=== PATIENT | male | born 1940 | race Caucasian/White ===

== ENCOUNTER 2018-04-29 09:29 | Inpatient (IN) | payer MEDICARE, OTHER ==
[~2018-04-29] VITALS: Ht 185.4 cm; Wt 101.1 kg
[2018-04-29] VITALS (10 sets, daily range): BP systolic 111–170; BP diastolic 73–99
[~2018-04-29 09:29] MED LIST: ALLO100T PO; ASPI-611 PO; CHOL2000 PO; MELA1TAB11 PO; METO50TA7 PO; MULT-1074 PO; OMEG10006 PO; VITA100D6 PO; etomidate 2mg/ml inj. ONE; rocuronium 10mg/ml inj IV ONE
[2018-04-29] MEDS ORDERED: LORazepam 2 mg/ml vial IV ONE (09:33)
[2018-04-29] MEDS ORDERED: LORazepam 2 mg/ml vial ONE ×2 (09:33→09:42)
[2018-04-29] MEDS: midazolam 100mg in NS 100ml 100 ML IV PRN ×2 (10:07→18:13)
[2018-04-29 10:09] LABS: BASOPHILS % (AUTO) 0.3 % (0-1); EOSINOPHILS # (AUTO) 0.3 X10'3 (0-0.9); EOSINOPHILS % (AUTO) 2.4 % (0-6); HEMATOCRIT 53.3 % (42.0-52.0); LYMPHOCYTES # (AUTO) 2.8 X10'3 (1.1-4.8); LYMPHOCYTES % (AUTO) 21.6 % (21-51); MEAN CORPUSCULAR HEMOGLOBIN 33.5 PG (27.0-31.0); MEAN CORPUSCULAR HGB CONC 33.9 % (33.0-36.5); MEAN CORPUSCULAR VOLUME 98.7 FL (78-98); MEAN PLATELET VOLUME 8.5 FL (7.4-10.4); MONOCYTES # (AUTO) 0.8 X10'3 (0-0.9); MONOCYTES % (AUTO) 6.2 % (2-12); NEUTROPHILS # (AUTO) 9.1 X10'3 (1.8-7.7); NEUTROPHILS % (AUTO) 69.5 % (42-75); PLATELET COUNT 168 X10'3 (140-440); RED CELL DISTRIBUTION WIDTH 13.4 % (11.5-14.5); WHITE BLOOD COUNT 13.1 X10'3 (4.5-11.0)
[2018-04-29 10:14] LABS: HEMOGLOBIN 18.1 g/dl (14.0-17.9)
[2018-04-29] MEDS ORDERED: niCARDipine/sod cl 20mg/200ml 200 ML IV ONE (10:15)
[2018-04-29 10:17] LABS: PARTIAL THROMBOPLASTIN TIME 29 SECONDS (22-32); PROTHROMBIN TIME 10.3 SECONDS (9.0-12.0)
[2018-04-29 10:23] LABS: ALANINE AMINOTRANSFERASE 30 U/L (12-78); ALBUMIN 4.1 G/DL (3.4-5.0); ALBUMIN/GLOBULIN RATIO 1.1 (1.1-1.5); ALKALINE PHOSPHATASE 55 IU/L (46-116); ANION GAP 20 (8-16); ASPARTATE AMINO TRANSFERASE 24 U/L (10-37); BILIRUBIN,TOTAL 0.7 MG/DL (0.1-1.0); BLOOD UREA NITROGEN 21 MG/DL (7-18); BUN/CREATININE RATIO 11.9 (5.4-32.0); CALCIUM 9.4 MG/DL (8.5-10.1); CHLORIDE 99 MMOL/L (99-107); CREATININE 1.76 MG/DL (0.60-1.10); GLUCOSE 204 MG/DL (70-104); SODIUM 139 MMOL/L (135-145); TOTAL CARBON DIOXIDE 19.9 MMOL/L (24-32); eGFR 38 ML/MIN
[2018-04-29 10:25] LABS: ETHANOL < 0.010 GM/DL (0.0-0.010); TROPONIN I < 0.04 NG/ML (0.0-0.05)
[2018-04-29 10:26] LABS: POTASSIUM 4.4 MMOL/L (3.5-5.1)
[2018-04-29] MEDS ORDERED: propofol 1000mg/100ml bottle 100 ML IV ONE ×2 (10:37→14:32)
[2018-04-29] MEDS ORDERED: midazolam 100mg in NS 100ml 100 ML IV PRN (11:23)
[2018-04-29] MEDS ORDERED: fentaNYL/PF 50MCG/1 ML 2ML syringe IV PRN (11:25)
[2018-04-29] MEDS ORDERED: potassium Cl 40MEQ/NS 500ml 500 ML IV PRN ×2 (11:25)
[2018-04-29] MEDS ORDERED: potassium Cl 20 mEq SR tablet PO PRN (11:25)
[2018-04-29] MEDS ORDERED: midazolam 2 mg/2 ml injection IV ONE (11:25)
[2018-04-29] MEDS ORDERED: acetaminophen 325mg tablet PO PRN ×2 (11:25)
[2018-04-29] MEDS ORDERED: ipratropium/albuterol 3ml nebule NEB PRN (11:25)
[2018-04-29 11:26] LABS: ABG BASE EXCESS -1.6 mmol/L (-2.0-3.0); ABG HCO3 25.1 mmol/L (22.0-26.0); ABG PCO2 (T) 49.2 mmHg (35.0-48.0); ABG PH (T) 7.326 (7.350-7.450); ABG PO2 (T) 198.6 mmHg (83-108); ALLEN'S TEST Positive; FCOHb 1.3 % (0.5-1.5); FLOW 60 L/min; FMetHb 0.4 % (0.3-1.12); FO2Hb 97.3 % (94-100); PEEP 5 cm H2O; RESPIRATORY RATE 12 b/min; TIDAL VOLUME 500 mL
[2018-04-29] MEDS ORDERED: normal saline 1000ML IV soln IVB ONE (11:30)
[2018-04-29] MEDS ORDERED: levetiracetam inj 1,000 MG in normal saline 100ml IV soln 90 ML IV ONE (11:48)
[2018-04-29] MEDS ORDERED: LOSA100T28 PO (11:52)
[2018-04-29] MEDS ORDERED: iohexol 350MG/ML 100ml bottle IV ONE (12:11)
[2018-04-29 12:24] LABS: CLARITY,URINE CLOUDY (Clear); COLOR,URINE YELLOW (Yellow); GLUCOSE, URINE 250 mg/dl (Neg); KETONES,URINE NEGATIVE (Neg); LEUKOCYTE ESTERASE ,URINE NEGATIVE (Neg); NITRITES, URINE NEGATIVE (Neg); OCCULT BLOOD,URINE LARGE (Neg); PROTEIN,URINE 30 mg/dl (Neg); UROBILINOGEN,URINE 0.2 E.U/dL (0.2-1.0)
[2018-04-29 12:34] LABS: UA COLLECTION TYPE FOLEY CATH
[2018-04-29 12:35] LABS: MUCUS STRANDS FEW /LPF (Neg); SQUAMOUS EPITHELIAL CELL,UR FEW /LPF (FEW)
[2018-04-29 12:36] LABS: BACTERIA,URINE FEW /HPF (Neg); RBC,URINE 20-50 /HPF (0-2); WBC,URINE 0-4 /HPF (0-4)
[2018-04-29] MEDS: lactulose 20gm/30ml cup PO SCH ×3 (12:36→20:57)
[2018-04-29 12:40] LABS: URINE AMPHETAMINE SCREEN NEGATIVE (Neg); URINE BARBITUATE SCREEN NEGATIVE (Neg); URINE BENZODIAZEPINES SCREEN POSITIVE (Neg); URINE CANNABINOID SCREEN POSITIVE (Neg); URINE COCAINE SCREEN NEGATIVE (Neg); URINE METHADONE SCREEN NEGATIVE (Neg); URINE OPIATE SCREEN NEGATIVE (Neg); URINE PHENCYCLIDINE SCREEN NEGATIVE (Neg)
[2018-04-29] MEDS: normal saline 1000ml 1,000 ML IV SCH ×2 (13:17→20:58)
[2018-04-29 16:48] LABS: CLARITY,URINE Clear (Clear); COLOR,URINE Yellow (Yellow); GLUCOSE, URINE Negative (Neg); KETONES,URINE Negative (Neg); LEUKOCYTE ESTERASE ,URINE Negative (Neg); NITRITES, URINE Negative (Neg); OCCULT BLOOD,URINE Moderate (Neg); PH,URINE 6.5 (4.8-8.0); PROTEIN,URINE Negative (Neg); UROBILINOGEN,URINE 0.2 E.U/dL (0.2-1.0)
[2018-04-29 16:51] LABS: UA COLLECTION TYPE NON-SPECIFIED
[2018-04-29 17:06] LABS: SQUAMOUS EPITHELIAL CELL,UR NONE SEEN /LPF (FEW)
[2018-04-29 17:10] LABS: RBC,URINE 20-50 /HPF (0-2)
[2018-04-29 17:13] LABS: BACTERIA,URINE FEW /HPF (Neg); WBC,URINE 0-4 /HPF (0-4)
[2018-04-29 17:48] LABS: UA EOSINOPHILS NO EOS /HPF
[2018-04-29] MEDS: ipratropium/albuterol 3ml nebule NEB SCH ×2 (19:23→22:36)
[2018-04-29] MEDS: docusate sod 100mg capsule PO SCH (20:00)
[2018-04-29] MEDS: FENTANYL-0.9 % NACL/PF 100 ML IV PRN (20:55)
[2018-04-29] MEDS: levetiracetam inj 1,000 MG in normal saline 100ml IV soln 90 ML IV SCH (20:57)
[2018-04-29] MEDS: heparin, porcine 5000 units/ml vial SQ SCH (21:10)
[2018-04-30] VITALS (24 sets, daily range): BP systolic 83–169; BP diastolic 54–91
[2018-04-30] MEDS: lactulose 20gm/30ml cup PO SCH ×3 (02:51→14:00)
[2018-04-30] MEDS: normal saline 1000ml 1,000 ML IV SCH ×4 (02:51→20:55)
[2018-04-30] MEDS: midazolam 100mg in NS 100ml 100 ML IV PRN ×2 (02:54→21:16)
[2018-04-30] MEDS: ipratropium/albuterol 3ml nebule NEB SCH ×6 (03:31→23:16)
[2018-04-30 03:57] LABS: BASOPHILS # (AUTO) 0.1 X10'3 (0-0.2); BASOPHILS % (AUTO) 0.9 % (0-1); EOSINOPHILS % (AUTO) 0.4 % (0-6); HEMATOCRIT 45.2 % (42.0-52.0); HEMOGLOBIN 15.7 g/dl (14.0-17.9); LYMPHOCYTES # (AUTO) 0.8 X10'3 (1.1-4.8); LYMPHOCYTES % (AUTO) 6.1 % (21-51); MEAN CORPUSCULAR HEMOGLOBIN 33.7 PG (27.0-31.0); MEAN CORPUSCULAR HGB CONC 34.7 % (33.0-36.5); MEAN PLATELET VOLUME 8.7 FL (7.4-10.4); MONOCYTES # (AUTO) 0.7 X10'3 (0-0.9); MONOCYTES % (AUTO) 5.7 % (2-12); NEUTROPHILS # (AUTO) 11.2 X10'3 (1.8-7.7); NEUTROPHILS % (AUTO) 86.9 % (42-75); RED BLOOD COUNT 4.66 X10'6 (4.70-6.10); RED CELL DISTRIBUTION WIDTH 13.3 % (11.5-14.5); WHITE BLOOD COUNT 12.9 X10'3 (4.5-11.0)
[2018-04-30 04:12] LABS: ALANINE AMINOTRANSFERASE 24 U/L (12-78); ALBUMIN 3.2 G/DL (3.4-5.0); ALBUMIN/GLOBULIN RATIO 1.1 (1.1-1.5); ALKALINE PHOSPHATASE 43 IU/L (46-116); ANION GAP 5 (8-16); ASPARTATE AMINO TRANSFERASE 16 U/L (10-37); BILIRUBIN,TOTAL 0.9 MG/DL (0.1-1.0); BLOOD UREA NITROGEN 16 MG/DL (7-18); BUN/CREATININE RATIO 11.9 (5.4-32.0); CALCIUM 7.7 MG/DL (8.5-10.1); CHLORIDE 105 MMOL/L (99-107); CREATININE 1.35 MG/DL (0.60-1.10); GLUCOSE 127 MG/DL (70-104); MAGNESIUM 1.5 MG/DL (1.5-2.4); PHOSPHORUS 2.7 MG/DL (2.3-4.5); POTASSIUM 3.7 MMOL/L (3.5-5.1); SODIUM 140 MMOL/L (135-145); TOTAL CARBON DIOXIDE 30.4 MMOL/L (24-32); TOTAL PROTEIN 6.2 G/DL (6.4-8.2); eGFR 51 ML/MIN
[2018-04-30 04:16] LABS: PLATELET COUNT 90 X10'3 (140-440)
[2018-04-30 05:16] LABS: ABG BASE EXCESS -2.1 mmol/L (-2.0-3.0); ABG HCO3 22.5 mmol/L (22.0-26.0); ABG OXYGEN SATURATION 91.8 % (95-98); ABG PCO2 (T) 37.1 mmHg (35.0-48.0); ABG PH (T) 7.397 (7.350-7.450); ABG PO2 (T) 57.7 mmHg (83-108); ALLEN'S TEST Positive; FCOHb 0.9 % (0.5-1.5); FMetHb 0.2 % (0.3-1.12); FO2Hb 90.8 % (94-100); MINUTE VOLUME 8 L/min; PATIENT TEMPERATURE 36.1; PEEP 5 cm H2O; RESPIRATORY RATE 20 b/min; RESPIRATORY RATE (OBSERVED) 20 b/min; TIDAL VOLUME 400 mL; TOTAL HEMOGLOBIN 16.6 G/dl (14.0-18.0)
[2018-04-30] MEDS: docusate sod 100mg capsule PO SCH ×2 (08:00→20:00)
[2018-04-30] MEDS: heparin, porcine 5000 units/ml vial SQ SCH ×2 (08:00→20:00)
[2018-04-30] MEDS: levetiracetam inj 1,000 MG in normal saline 100ml IV soln 90 ML IV SCH ×2 (08:11→20:53)
[2018-04-30] MEDS ORDERED: LORazepam 2 mg/ml vial IM ONE (11:10)
[2018-04-30] MEDS ORDERED: propofol 1000mg/100ml bottle 100 ML IV PRN (11:11)
[2018-04-30] MEDS: DEXMEDETOMIDINE 400MCG in NORMAL SALINE 100ml IV SCH (11:43)
[2018-04-30] MEDS: mineral oil/petrolatum ophthal oint EACHEYE SCH ×2 (14:39→20:56)
[2018-04-30] MEDS: allopurinol 100mg tablet PO SCH (17:07)
[2018-04-30] MEDS: Melatonin 3mg tablet PO SCH (20:55)
[2018-04-30] MEDS: FENTANYL-0.9 % NACL/PF 100 ML IV PRN (21:15)
[2018-05-01] VITALS (24 sets, daily range): BP systolic 124–169; BP diastolic 59–94
[2018-05-01] MEDS: DEXMEDETOMIDINE 400MCG in NORMAL SALINE 100ml IV SCH ×3 (02:15→19:26)
[2018-05-01] MEDS: mineral oil/petrolatum ophthal oint EACHEYE SCH ×4 (02:15→20:20)
[2018-05-01] MEDS: ipratropium/albuterol 3ml nebule NEB SCH ×6 (03:16→23:11)
[2018-05-01] MEDS: normal saline 1000ml 1,000 ML IV SCH ×4 (03:23→23:24)
[2018-05-01 03:36] LABS: ABG BASE EXCESS -0.4 mmol/L (-2.0-3.0); ABG HCO3 25.2 mmol/L (22.0-26.0); ABG OXYGEN SATURATION 97.8 % (95-98); ABG PH (T) 7.383 (7.350-7.450); ABG PO2 (T) 101.4 mmHg (83-108); ALLEN'S TEST Positive; FCOHb 0.6 % (0.5-1.5); FMetHb 0.2 % (0.3-1.12); MINUTE VOLUME 10 L/min; PATIENT TEMPERATURE 36.2; PEEP 5 cm H2O; RESPIRATORY RATE 20 b/min; RESPIRATORY RATE (OBSERVED) 22 b/min; TIDAL VOLUME 400 mL; TOTAL HEMOGLOBIN 15.9 G/dl (14.0-18.0)
[2018-05-01 04:47] LABS: BASOPHILS % (AUTO) 0.2 % (0-1); EOSINOPHILS % (AUTO) 0.1 % (0-6); HEMATOCRIT 43.3 % (42.0-52.0); LYMPHOCYTES # (AUTO) 0.6 X10'3 (1.1-4.8); LYMPHOCYTES % (AUTO) 5.2 % (21-51); MEAN CORPUSCULAR HEMOGLOBIN 33.8 PG (27.0-31.0); MEAN CORPUSCULAR HGB CONC 34.7 % (33.0-36.5); MEAN CORPUSCULAR VOLUME 97.4 FL (78-98); MEAN PLATELET VOLUME 7.8 FL (7.4-10.4); MONOCYTES # (AUTO) 0.5 X10'3 (0-0.9); MONOCYTES % (AUTO) 4.4 % (2-12); NEUTROPHILS % (AUTO) 90.1 % (42-75); PLATELET COUNT 75 X10'3 (140-440); RED BLOOD COUNT 4.44 X10'6 (4.70-6.10); RED CELL DISTRIBUTION WIDTH 13.4 % (11.5-14.5); WHITE BLOOD COUNT 11.1 X10'3 (4.5-11.0)
[2018-05-01 05:04] LABS: ALANINE AMINOTRANSFERASE 18 U/L (12-78); ALBUMIN 2.5 G/DL (3.4-5.0); ALBUMIN/GLOBULIN RATIO 0.8 (1.1-1.5); ALKALINE PHOSPHATASE 36 IU/L (46-116); ANION GAP 7 (8-16); ASPARTATE AMINO TRANSFERASE 13 U/L (10-37); BILIRUBIN,TOTAL 1.1 MG/DL (0.1-1.0); BLOOD UREA NITROGEN 14 MG/DL (7-18); BUN/CREATININE RATIO 9.8 (5.4-32.0); CALCIUM 7.1 MG/DL (8.5-10.1); CHLORIDE 106 MMOL/L (99-107); CREATININE 1.43 MG/DL (0.60-1.10); GLUCOSE 149 MG/DL (70-104); MAGNESIUM 1.3 MG/DL (1.5-2.4); PHOSPHORUS 1.9 MG/DL (2.3-4.5); POTASSIUM 3.8 MMOL/L (3.5-5.1); SODIUM 141 MMOL/L (135-145); TOTAL CARBON DIOXIDE 27.8 MMOL/L (24-32); TOTAL PROTEIN 5.7 G/DL (6.4-8.2); eGFR 48 ML/MIN
[2018-05-01 07:22] LABS: TOTAL CELLS COUNTED 100
[2018-05-01 07:25] LABS: PLATELET ESTIMATE DECREASED
[2018-05-01] MEDS: aspirin 81mg tablet.DR PO SCH (07:37)
[2018-05-01] MEDS: multivitamins, therapeutics tablet PO SCH (07:37)
[2018-05-01] MEDS: allopurinol 100mg tablet PO SCH (07:37)
[2018-05-01] MEDS: levetiracetam inj 1,000 MG in normal saline 100ml IV soln 90 ML IV SCH (07:38)
[2018-05-01] MEDS: losartan 50mg tablet PO SCH (07:38)
[2018-05-01] MEDS: docusate sod 100mg capsule PO SCH (07:38)
[2018-05-01] MEDS: vitamin D (cholecalciferol) 1,000 unit tablet PO SCH (07:38)
[2018-05-01] MEDS ORDERED: VITAMIN E 400 UNIT PO SCH (08:00)
[2018-05-01] MEDS ORDERED: FATTY ACIDS PO SCH (08:00)
[2018-05-01] MEDS ORDERED: OMEGA PO SCH (08:00)
[2018-05-01] MEDS ORDERED: metoprolol succinate 25mg (24-HOUR) SR. Tablet PO SCH (08:00)
[2018-05-01] MEDS: heparin, porcine 5000 units/ml vial SQ SCH (08:00)
[2018-05-01] MEDS ORDERED: midazolam 2 mg/2 ml injection IV PRN (11:05)
[2018-05-01] MEDS ORDERED: fentaNYL/PF 50MCG/1 ML 2ML syringe IV PRN (11:05)
[2018-05-01] MEDS: metoprolol tartrate 25mg tablet PO SCH ×2 (11:14→20:20)
[2018-05-01] MEDS ORDERED: rocuronium 10mg/ml inj IV ONE (11:30)
[2018-05-01] MEDS: LORazepam 2 mg/ml vial IV PRN ×2 (11:58→17:33)
[2018-05-01] MEDS: docusate sodium 100mg/10ml UD cup PO SCH (20:20)
[2018-05-01] MEDS: Melatonin 3mg tablet PO SCH (20:20)
[2018-05-02] VITALS (24 sets, daily range): BP systolic 135–179; BP diastolic 80–100
[2018-05-02] MEDS: DEXMEDETOMIDINE 400MCG in NORMAL SALINE 100ml IV SCH ×4 (00:51→19:15)
[2018-05-02] MEDS: midazolam 100mg in NS 100ml 100 ML IV PRN ×2 (00:51→16:32)
[2018-05-02] MEDS: mineral oil/petrolatum ophthal oint EACHEYE SCH ×4 (02:33→19:36)
[2018-05-02] MEDS: normal saline 1000ml 1,000 ML IV SCH ×3 (02:33→22:26)
[2018-05-02 02:42] LABS: BASOPHILS % (AUTO) 0.1 % (0-1); EOSINOPHILS # (AUTO) 0.1 X10'3 (0-0.9); EOSINOPHILS % (AUTO) 1.6 % (0-6); HEMATOCRIT 41.5 % (42.0-52.0); HEMOGLOBIN 14.3 g/dl (14.0-17.9); LYMPHOCYTES # (AUTO) 0.8 X10'3 (1.1-4.8); LYMPHOCYTES % (AUTO) 8.9 % (21-51); MEAN CORPUSCULAR HEMOGLOBIN 33.8 PG (27.0-31.0); MEAN CORPUSCULAR HGB CONC 34.4 % (33.0-36.5); MEAN CORPUSCULAR VOLUME 98.2 FL (78-98); MEAN PLATELET VOLUME 7.7 FL (7.4-10.4); MONOCYTES # (AUTO) 0.6 X10'3 (0-0.9); MONOCYTES % (AUTO) 6.4 % (2-12); NEUTROPHILS # (AUTO) 7.4 X10'3 (1.8-7.7); PLATELET COUNT 79 X10'3 (140-440); RED BLOOD COUNT 4.23 X10'6 (4.70-6.10); RED CELL DISTRIBUTION WIDTH 13.3 % (11.5-14.5); WHITE BLOOD COUNT 8.9 X10'3 (4.5-11.0)
[2018-05-02 03:01] LABS: ALANINE AMINOTRANSFERASE 16 U/L (12-78); ALBUMIN 2.3 G/DL (3.4-5.0); ALBUMIN/GLOBULIN RATIO 0.7 (1.1-1.5); ALKALINE PHOSPHATASE 47 IU/L (46-116); ANION GAP 4 (8-16); ASPARTATE AMINO TRANSFERASE 11 U/L (10-37); BLOOD UREA NITROGEN 10 MG/DL (7-18); BUN/CREATININE RATIO 8.4 (5.4-32.0); CALCIUM 7.3 MG/DL (8.5-10.1); CHLORIDE 107 MMOL/L (99-107); CREATININE 1.19 MG/DL (0.60-1.10); GLUCOSE 149 MG/DL (70-104); MAGNESIUM 1.6 MG/DL (1.5-2.4); PHOSPHORUS 1.7 MG/DL (2.3-4.5); POTASSIUM 3.6 MMOL/L (3.5-5.1); SODIUM 140 MMOL/L (135-145); TOTAL CARBON DIOXIDE 28.7 MMOL/L (24-32); TOTAL PROTEIN 5.6 G/DL (6.4-8.2); eGFR 59 ML/MIN
[2018-05-02] MEDS: ipratropium/albuterol 3ml nebule NEB SCH ×6 (03:21→23:41)
[2018-05-02 03:41] LABS: ABG HCO3 22.8 mmol/L (22.0-26.0); ABG OXYGEN SATURATION 97.1 % (95-98); ABG PH (T) 7.392 (7.350-7.450); ALLEN'S TEST Positive; FCOHb 0.3 % (0.5-1.5); FMetHb 0.1 % (0.3-1.12); FO2Hb 96.7 % (94-100); MINUTE VOLUME 8 L/min; PATIENT TEMPERATURE 36.3; PEEP 5 cm H2O; RESPIRATORY RATE 20 b/min; RESPIRATORY RATE (OBSERVED) 20 b/min; TIDAL VOLUME 400 mL; TOTAL HEMOGLOBIN 14.9 G/dl (14.0-18.0)
[2018-05-02] MEDS: FENTANYL-0.9 % NACL/PF 100 ML IV PRN ×2 (06:49→23:49)
[2018-05-02] MEDS: multivitamins, therapeutics tablet PO SCH (07:43)
[2018-05-02] MEDS: losartan 50mg tablet PO SCH (07:43)
[2018-05-02] MEDS: aspirin 81mg tablet.DR PO SCH (07:43)
[2018-05-02] MEDS: metoprolol tartrate 25mg tablet PO SCH ×2 (07:43→19:36)
[2018-05-02] MEDS: docusate sodium 100mg/10ml UD cup PO SCH ×2 (07:43→19:37)
[2018-05-02] MEDS: vitamin D (cholecalciferol) 1,000 unit tablet PO SCH (07:43)
[2018-05-02] MEDS: allopurinol 100mg tablet PO SCH (07:43)
[2018-05-02] MEDS: heparin, porcine 5000 units/ml vial SQ SCH (20:00)
[2018-05-02] MEDS: Melatonin 3mg tablet PO SCH (21:08)
[2018-05-02] MEDS ORDERED: hydrALAZINE 20mg/ml inj. IV ONE (22:10)
[2018-05-03] VITALS (24 sets, daily range): BP systolic 121–196; BP diastolic 73–100
[2018-05-03] MEDS: normal saline 1000ml 1,000 ML IV SCH ×4 (02:03→17:00)
[2018-05-03] MEDS: DEXMEDETOMIDINE 400MCG in NORMAL SALINE 100ml IV SCH ×2 (02:05→08:19)
[2018-05-03] MEDS: mineral oil/petrolatum ophthal oint EACHEYE SCH ×4 (02:05→20:00)
[2018-05-03 02:45] LABS: BASOPHILS % (AUTO) 0.3 % (0-1); EOSINOPHILS # (AUTO) 0.2 X10'3 (0-0.9); EOSINOPHILS % (AUTO) 1.8 % (0-6); HEMATOCRIT 40.8 % (42.0-52.0); HEMOGLOBIN 14.1 g/dl (14.0-17.9); LYMPHOCYTES # (AUTO) 0.5 X10'3 (1.1-4.8); LYMPHOCYTES % (AUTO) 5.7 % (21-51); MEAN CORPUSCULAR HEMOGLOBIN 33.8 PG (27.0-31.0); MEAN CORPUSCULAR HGB CONC 34.7 % (33.0-36.5); MEAN CORPUSCULAR VOLUME 97.5 FL (78-98); MEAN PLATELET VOLUME 7.8 FL (7.4-10.4); MONOCYTES # (AUTO) 0.6 X10'3 (0-0.9); MONOCYTES % (AUTO) 6.8 % (2-12); NEUTROPHILS # (AUTO) 7.1 X10'3 (1.8-7.7); NEUTROPHILS % (AUTO) 85.4 % (42-75); PLATELET COUNT 87 X10'3 (140-440); RED BLOOD COUNT 4.19 X10'6 (4.70-6.10); RED CELL DISTRIBUTION WIDTH 13.5 % (11.5-14.5); WHITE BLOOD COUNT 8.3 X10'3 (4.5-11.0)
[2018-05-03 03:02] LABS: ALANINE AMINOTRANSFERASE 17 U/L (12-78); ALBUMIN 2.2 G/DL (3.4-5.0); ALBUMIN/GLOBULIN RATIO 0.6 (1.1-1.5); ALKALINE PHOSPHATASE 80 IU/L (46-116); ANION GAP 8 (8-16); ASPARTATE AMINO TRANSFERASE 14 U/L (10-37); BILIRUBIN,TOTAL 0.9 MG/DL (0.1-1.0); BLOOD UREA NITROGEN 9 MG/DL (7-18); BUN/CREATININE RATIO 7.8 (5.4-32.0); CHLORIDE 106 MMOL/L (99-107); CREATININE 1.16 MG/DL (0.60-1.10); GLUCOSE 156 MG/DL (70-104); MAGNESIUM 1.5 MG/DL (1.5-2.4); POTASSIUM 3.3 MMOL/L (3.5-5.1); SODIUM 141 MMOL/L (135-145); TOTAL CARBON DIOXIDE 27.5 MMOL/L (24-32); TOTAL PROTEIN 5.7 G/DL (6.4-8.2); eGFR 61 ML/MIN
[2018-05-03 03:07] LABS: PHOSPHORUS 1.2 MG/DL (2.3-4.5)
[2018-05-03] MEDS: ipratropium/albuterol 3ml nebule NEB SCH ×6 (03:07→20:24)
[2018-05-03 03:26] LABS: ABG HCO3 24.6 mmol/L (22.0-26.0); ABG OXYGEN SATURATION 94.3 % (95-98); ABG PCO2 (T) 37.5 mmHg (35.0-48.0); ABG PH (T) 7.438 (7.350-7.450); ABG PO2 (T) 66.5 mmHg (83-108); ALLEN'S TEST Positive; FCOHb 0.8 % (0.5-1.5); FMetHb 0.2 % (0.3-1.12); FO2Hb 93.4 % (94-100); MINUTE VOLUME 8 L/min; PATIENT TEMPERATURE 37.6; PEEP 5 cm H2O; RESPIRATORY RATE 20 b/min; RESPIRATORY RATE (OBSERVED) 20 b/min; TIDAL VOLUME 400 mL; TOTAL HEMOGLOBIN 15.1 G/dl (14.0-18.0)
[2018-05-03] MEDS ORDERED: potassium Cl 40MEQ/250ML bag 250 ML IV PRN ×2 (03:35)
[2018-05-03] MEDS: midazolam 100mg in NS 100ml 100 ML IV PRN (05:44)
[2018-05-03] MEDS: docusate sodium 100mg/10ml UD cup PO SCH ×2 (07:38→20:00)
[2018-05-03] MEDS: vitamin D (cholecalciferol) 1,000 unit tablet PO SCH (07:38)
[2018-05-03] MEDS: multivitamins, therapeutics tablet PO SCH (07:38)
[2018-05-03] MEDS: losartan 50mg tablet PO SCH (07:38)
[2018-05-03] MEDS: aspirin 81mg tablet.DR PO SCH (07:38)
[2018-05-03] MEDS: heparin, porcine 5000 units/ml vial SQ SCH ×3 (07:39→20:00)
[2018-05-03] MEDS: potassium Cl 20 mEq SR tablet PO PRN (07:39)
[2018-05-03] MEDS: metoprolol tartrate 25mg tablet PO SCH ×2 (07:39→20:59)
[2018-05-03] MEDS: allopurinol 100mg tablet PO SCH (07:39)
[2018-05-03] MEDS: FENTANYL-0.9 % NACL/PF 100 ML IV PRN (10:05)
[2018-05-03] MEDS ORDERED: ipratropium/albuterol 3ml nebule NEB PRN (13:30)
[2018-05-03] MEDS ORDERED: racepinephrine 11.25mg/0.5ml nebule NEB PRN (13:30)
[2018-05-03 20:01] LABS: ABG BASE EXCESS 3.5 mmol/L (-2.0-3.0); ABG HCO3 27.7 mmol/L (22.0-26.0); ABG PCO2 (T) 42.7 mmHg (35.0-48.0); ABG PH (T) 7.435 (7.350-7.450); ABG PO2 (T) 89.1 mmHg (83-108); ALLEN'S TEST Positive; FCOHb 1.3 % (0.5-1.5); FLOW 10 L/min; FMetHb 0.1 % (0.3-1.12); FO2Hb 94.7 % (94-100); PATIENT TEMPERATURE 38.2; TOTAL HEMOGLOBIN 15.1 G/dl (14.0-18.0)
[2018-05-03] MEDS: Melatonin 3mg tablet PO SCH (21:00)
[2018-05-03] MEDS: hydrALAZINE 20mg/ml inj. IV PRN (23:00)
[2018-05-04] VITALS (24 sets, daily range): BP systolic 154–195; BP diastolic 75–99
[2018-05-04] MEDS ORDERED: hydrALAZINE 20mg/ml inj. IV ONE (02:20)
[2018-05-04] MEDS: ipratropium/albuterol 3ml nebule NEB SCH ×5 (02:39→23:30)
[2018-05-04 03:19] LABS: BASOPHILS % (AUTO) 0.1 % (0-1); EOSINOPHILS # (AUTO) 0.1 X10'3 (0-0.9); EOSINOPHILS % (AUTO) 0.5 % (0-6); HEMATOCRIT 42.5 % (42.0-52.0); HEMOGLOBIN 14.5 g/dl (14.0-17.9); LYMPHOCYTES # (AUTO) 0.6 X10'3 (1.1-4.8); LYMPHOCYTES % (AUTO) 5.7 % (21-51); MEAN CORPUSCULAR HEMOGLOBIN 33.1 PG (27.0-31.0); MEAN CORPUSCULAR HGB CONC 34.1 % (33.0-36.5); MEAN CORPUSCULAR VOLUME 97.1 FL (78-98); MEAN PLATELET VOLUME 7.3 FL (7.4-10.4); MONOCYTES # (AUTO) 0.8 X10'3 (0-0.9); MONOCYTES % (AUTO) 7.9 % (2-12); NEUTROPHILS # (AUTO) 8.3 X10'3 (1.8-7.7); NEUTROPHILS % (AUTO) 85.8 % (42-75); PLATELET COUNT 115 X10'3 (140-440); RED BLOOD COUNT 4.38 X10'6 (4.70-6.10); RED CELL DISTRIBUTION WIDTH 13.8 % (11.5-14.5); WHITE BLOOD COUNT 9.7 X10'3 (4.5-11.0)
[2018-05-04 03:38] LABS: ALANINE AMINOTRANSFERASE 28 U/L (12-78); ALBUMIN 2.6 G/DL (3.4-5.0); ALBUMIN/GLOBULIN RATIO 0.7 (1.1-1.5); ALKALINE PHOSPHATASE 103 IU/L (46-116); ANION GAP 9 (8-16); ASPARTATE AMINO TRANSFERASE 23 U/L (10-37); BILIRUBIN,TOTAL 1.3 MG/DL (0.1-1.0); BLOOD UREA NITROGEN 14 MG/DL (7-18); BUN/CREATININE RATIO 11.6 (5.4-32.0); CALCIUM 8.8 MG/DL (8.5-10.1); CHLORIDE 107 MMOL/L (99-107); CREATININE 1.21 MG/DL (0.60-1.10); GLUCOSE 130 MG/DL (70-104); MAGNESIUM 1.4 MG/DL (1.5-2.4); PHOSPHORUS 1.9 MG/DL (2.3-4.5); POTASSIUM 3.2 MMOL/L (3.5-5.1); PREALBUMIN 16.1 MG/DL (19-36); SODIUM 144 MMOL/L (135-145); TOTAL CARBON DIOXIDE 27.8 MMOL/L (24-32); TOTAL PROTEIN 6.3 G/DL (6.4-8.2); eGFR 58 ML/MIN
[2018-05-04] MEDS: normal saline 1000ml 1,000 ML IV SCH ×3 (05:49→18:03)
[2018-05-04] MEDS: hydrALAZINE 20mg/ml inj. IV PRN ×2 (06:02→11:38)
[2018-05-04] MEDS: potassium Cl 20 mEq SR tablet PO PRN (07:52)
[2018-05-04] MEDS: metoprolol tartrate 25mg tablet PO SCH ×2 (07:52→19:46)
[2018-05-04] MEDS: multivitamins, therapeutics tablet PO SCH (07:52)
[2018-05-04] MEDS: vitamin D (cholecalciferol) 1,000 unit tablet PO SCH (07:52)
[2018-05-04] MEDS: losartan 50mg tablet PO SCH (07:53)
[2018-05-04] MEDS: aspirin 81mg tablet.DR PO SCH (07:53)
[2018-05-04] MEDS: allopurinol 100mg tablet PO SCH (07:53)
[2018-05-04] MEDS: heparin, porcine 5000 units/ml vial SQ SCH ×2 (07:53→19:47)
[2018-05-04] MEDS: docusate sodium 100mg/10ml UD cup PO SCH ×2 (08:00→19:46)
[2018-05-04] MEDS ORDERED: CefTRIAXone/D5W-Rocephin 1gm 50 ML IV SCH (09:55)
[2018-05-04] MEDS: cefTRIAXone 1g/NS 100ml IVPB 100 ML IV SCH (10:00)
[2018-05-04] MEDS: ondansetron/PF 4mg/2ml inj IV PRN ×2 (11:38→18:38)
[2018-05-04] MEDS: Melatonin 3mg tablet PO SCH (19:46)
[2018-05-04] MEDS: lactobacillus rhamnosus 10,000 MMU CELLS/CAPSULE PO SCH (19:46)
[2018-05-05] VITALS (18 sets, daily range): BP systolic 145–206; BP diastolic 78–112
[2018-05-05] MEDS: normal saline 1000ml 1,000 ML IV SCH ×2 (00:43→07:23)
[2018-05-05] MEDS ORDERED: hydrALAZINE 20mg/ml inj. IV PRN (01:30)
[2018-05-05] MEDS: ipratropium/albuterol 3ml nebule NEB SCH ×4 (02:40→20:21)
[2018-05-05 04:49] LABS: BASOPHILS % (AUTO) 0 % (0-1); EOSINOPHILS # (AUTO) 0.1 X10'3 (0-0.9); HEMATOCRIT 42.3 % (42.0-52.0); HEMOGLOBIN 14.6 g/dl (14.0-17.9); LYMPHOCYTES # (AUTO) 0.6 X10'3 (1.1-4.8); LYMPHOCYTES % (AUTO) 5.4 % (21-51); MEAN CORPUSCULAR HEMOGLOBIN 33.6 PG (27.0-31.0); MEAN CORPUSCULAR HGB CONC 34.5 % (33.0-36.5); MEAN CORPUSCULAR VOLUME 97.6 FL (78-98); MEAN PLATELET VOLUME 7.4 FL (7.4-10.4); MONOCYTES # (AUTO) 0.9 X10'3 (0-0.9); MONOCYTES % (AUTO) 8.3 % (2-12); NEUTROPHILS % (AUTO) 85.3 % (42-75); PLATELET COUNT 125 X10'3 (140-440); RED BLOOD COUNT 4.34 X10'6 (4.70-6.10); RED CELL DISTRIBUTION WIDTH 13.3 % (11.5-14.5); WHITE BLOOD COUNT 10.6 X10'3 (4.5-11.0)
[2018-05-05 05:14] LABS: ALANINE AMINOTRANSFERASE 38 U/L (12-78); ALBUMIN 2.5 G/DL (3.4-5.0); ALBUMIN/GLOBULIN RATIO 0.7 (1.1-1.5); ALKALINE PHOSPHATASE 96 IU/L (46-116); ANION GAP 8 (8-16); ASPARTATE AMINO TRANSFERASE 30 U/L (10-37); BLOOD UREA NITROGEN 18 MG/DL (7-18); BUN/CREATININE RATIO 14.1 (5.4-32.0); CALCIUM 8.5 MG/DL (8.5-10.1); CHLORIDE 104 MMOL/L (99-107); CREATININE 1.28 MG/DL (0.60-1.10); GLUCOSE 136 MG/DL (70-104); MAGNESIUM 1.5 MG/DL (1.5-2.4); PHOSPHORUS 2.3 MG/DL (2.3-4.5); POTASSIUM 3.2 MMOL/L (3.5-5.1); SODIUM 141 MMOL/L (135-145); TOTAL PROTEIN 6.2 G/DL (6.4-8.2); eGFR 54 ML/MIN
[2018-05-05] MEDS: losartan 50mg tablet PO SCH (07:23)
[2018-05-05] MEDS: vitamin D (cholecalciferol) 1,000 unit tablet PO SCH (07:23)
[2018-05-05] MEDS: allopurinol 100mg tablet PO SCH (07:23)
[2018-05-05] MEDS: metoprolol tartrate 25mg tablet PO SCH (07:23)
[2018-05-05] MEDS: lactobacillus rhamnosus 10,000 MMU CELLS/CAPSULE PO SCH ×2 (07:23→20:42)
[2018-05-05] MEDS: multivitamins, therapeutics tablet PO SCH (07:23)
[2018-05-05] MEDS: aspirin 81mg tablet.DR PO SCH (07:23)
[2018-05-05] MEDS: heparin, porcine 5000 units/ml vial SQ SCH ×2 (07:24→20:42)
[2018-05-05] MEDS: docusate sodium 100mg/10ml UD cup PO SCH ×2 (07:24→20:47)
[2018-05-05] MEDS: cefTRIAXone 1g/NS 100ml IVPB 100 ML IV SCH (07:24)
[2018-05-05] MEDS: calcium carbonate 500mg chew tablet PO PRN ×3 (10:27→20:47)
[2018-05-05] MEDS: metoprolol succinate 25mg (24-HOUR) SR. Tablet PO SCH (12:53)
[2018-05-05] MEDS: ondansetron/PF 4mg/2ml inj IV PRN (15:40)
[2018-05-05] MEDS: Melatonin 3mg tablet PO SCH (20:42)
[2018-05-05] MEDS: potassium Cl 20 mEq SR tablet PO PRN (20:47)
[2018-05-06 03:00] VITALS: BP 162/82
[2018-05-06] MEDS: ipratropium/albuterol 3ml nebule NEB SCH ×4 (03:00→21:00)
[2018-05-06 05:39] LABS: BASOPHILS % (AUTO) 0.3 % (0-1); EOSINOPHILS # (AUTO) 0.2 X10'3 (0-0.9); EOSINOPHILS % (AUTO) 2.2 % (0-6); HEMATOCRIT 41.7 % (42.0-52.0); HEMOGLOBIN 14.5 g/dl (14.0-17.9); LYMPHOCYTES # (AUTO) 0.8 X10'3 (1.1-4.8); LYMPHOCYTES % (AUTO) 6.8 % (21-51); MEAN CORPUSCULAR HEMOGLOBIN 33.6 PG (27.0-31.0); MEAN CORPUSCULAR HGB CONC 34.7 % (33.0-36.5); MEAN CORPUSCULAR VOLUME 96.8 FL (78-98); MEAN PLATELET VOLUME 7.6 FL (7.4-10.4); NEUTROPHILS # (AUTO) 9.1 X10'3 (1.8-7.7); NEUTROPHILS % (AUTO) 81.7 % (42-75); PLATELET COUNT 140 X10'3 (140-440); RED CELL DISTRIBUTION WIDTH 13.6 % (11.5-14.5); WHITE BLOOD COUNT 11.1 X10'3 (4.5-11.0)
[2018-05-06 05:52] LABS: ALANINE AMINOTRANSFERASE 38 U/L (12-78); ALBUMIN 2.4 G/DL (3.4-5.0); ALBUMIN/GLOBULIN RATIO 0.7 (1.1-1.5); ALKALINE PHOSPHATASE 94 IU/L (46-116); ANION GAP 7 (8-16); ASPARTATE AMINO TRANSFERASE 31 U/L (10-37); BILIRUBIN,TOTAL 0.9 MG/DL (0.1-1.0); BLOOD UREA NITROGEN 18 MG/DL (7-18); BUN/CREATININE RATIO 14.6 (5.4-32.0); CALCIUM 8.9 MG/DL (8.5-10.1); CHLORIDE 104 MMOL/L (99-107); CREATININE 1.23 MG/DL (0.60-1.10); GLUCOSE 125 MG/DL (70-104); MAGNESIUM 1.5 MG/DL (1.5-2.4); PHOSPHORUS 2.4 MG/DL (2.3-4.5); POTASSIUM 3.3 MMOL/L (3.5-5.1); SODIUM 140 MMOL/L (135-145); TOTAL CARBON DIOXIDE 29.4 MMOL/L (24-32); eGFR 57 ML/MIN
[2018-05-06 07:00] VITALS: BP 166/89
[2018-05-06] MEDS: cefTRIAXone 1g/NS 100ml IVPB 100 ML IV SCH (07:24)
[2018-05-06] MEDS: losartan 50mg tablet PO SCH (07:24)
[2018-05-06] MEDS: docusate sodium 100mg/10ml UD cup PO SCH ×2 (07:24→20:40)
[2018-05-06] MEDS: metoprolol succinate 25mg (24-HOUR) SR. Tablet PO SCH (07:25)
[2018-05-06] MEDS: lactobacillus rhamnosus 10,000 MMU CELLS/CAPSULE PO SCH ×2 (07:25→20:39)
[2018-05-06] MEDS: allopurinol 100mg tablet PO SCH (07:25)
[2018-05-06] MEDS: aspirin 81mg tablet.DR PO SCH (07:25)
[2018-05-06] MEDS: vitamin D (cholecalciferol) 1,000 unit tablet PO SCH (07:25)
[2018-05-06] MEDS: potassium Cl 20 mEq SR tablet PO PRN ×3 (07:25→20:39)
[2018-05-06] MEDS: multivitamins, therapeutics tablet PO SCH (07:25)
[2018-05-06] MEDS: heparin, porcine 5000 units/ml vial SQ SCH ×2 (07:26→20:39)
[2018-05-06 11:00] VITALS: BP 169/96
[2018-05-06 15:00] VITALS: BP 171/92
[2018-05-06] MEDS: calcium carbonate 500mg chew tablet PO PRN ×2 (15:32→20:39)
[2018-05-06 19:00] VITALS: BP 187/93
[2018-05-06] MEDS: Melatonin 3mg tablet PO SCH (20:39)
[2018-05-06 22:00] VITALS: BP 136/82
[2018-05-07 02:44] VITALS: BP 154/81
[2018-05-07] MEDS: ipratropium/albuterol 3ml nebule NEB SCH ×2 (02:59→08:39)
[2018-05-07 05:49] LABS: BASOPHILS % (AUTO) 0.4 % (0-1); EOSINOPHILS # (AUTO) 0.2 X10'3 (0-0.9); EOSINOPHILS % (AUTO) 2.2 % (0-6); HEMATOCRIT 41.3 % (42.0-52.0); HEMOGLOBIN 14.1 g/dl (14.0-17.9); LYMPHOCYTES # (AUTO) 0.9 X10'3 (1.1-4.8); MEAN CORPUSCULAR HEMOGLOBIN 33.3 PG (27.0-31.0); MEAN CORPUSCULAR HGB CONC 34.1 % (33.0-36.5); MEAN CORPUSCULAR VOLUME 97.7 FL (78-98); MEAN PLATELET VOLUME 7.6 FL (7.4-10.4); MONOCYTES % (AUTO) 11.2 % (2-12); NEUTROPHILS # (AUTO) 6.5 X10'3 (1.8-7.7); NEUTROPHILS % (AUTO) 75.2 % (42-75); PLATELET COUNT 155 X10'3 (140-440); RED BLOOD COUNT 4.23 X10'6 (4.70-6.10); RED CELL DISTRIBUTION WIDTH 13.2 % (11.5-14.5); WHITE BLOOD COUNT 8.6 X10'3 (4.5-11.0)
[2018-05-07 06:01] LABS: ALANINE AMINOTRANSFERASE 45 U/L (12-78); ALBUMIN 2.5 G/DL (3.4-5.0); ALBUMIN/GLOBULIN RATIO 0.7 (1.1-1.5); ALKALINE PHOSPHATASE 88 IU/L (46-116); ANION GAP 7 (8-16); ASPARTATE AMINO TRANSFERASE 35 U/L (10-37); BILIRUBIN,TOTAL 0.8 MG/DL (0.1-1.0); BLOOD UREA NITROGEN 19 MG/DL (7-18); BUN/CREATININE RATIO 15.1 (5.4-32.0); CALCIUM 9.1 MG/DL (8.5-10.1); CHLORIDE 102 MMOL/L (99-107); CREATININE 1.26 MG/DL (0.60-1.10); GLUCOSE 110 MG/DL (70-104); MAGNESIUM 1.5 MG/DL (1.5-2.4); PHOSPHORUS 2.6 MG/DL (2.3-4.5); POTASSIUM 3.6 MMOL/L (3.5-5.1); SODIUM 140 MMOL/L (135-145); TOTAL CARBON DIOXIDE 31.1 MMOL/L (24-32); eGFR 55 ML/MIN
[2018-05-07 07:00] VITALS: BP 147/78
[2018-05-07] MEDS: cefTRIAXone 1g/NS 100ml IVPB 100 ML IV SCH (08:00)
[2018-05-07] MEDS: heparin, porcine 5000 units/ml vial SQ SCH (08:00)
[2018-05-07] MEDS: losartan 50mg tablet PO SCH (08:03)
[2018-05-07] MEDS: allopurinol 100mg tablet PO SCH (08:03)
[2018-05-07] MEDS: metoprolol succinate 25mg (24-HOUR) SR. Tablet PO SCH (08:03)
[2018-05-07] MEDS: aspirin 81mg tablet.DR PO SCH (08:03)
[2018-05-07] MEDS: lactobacillus rhamnosus 10,000 MMU CELLS/CAPSULE PO SCH (08:03)
[2018-05-07] MEDS: docusate sodium 100mg/10ml UD cup PO SCH (08:03)
[2018-05-07] MEDS: vitamin D (cholecalciferol) 1,000 unit tablet PO SCH (08:03)
[2018-05-07] MEDS: multivitamins, therapeutics tablet PO SCH (08:03)
[2018-05-07] MEDS: calcium carbonate 500mg chew tablet PO PRN (09:29)
[2018-05-07 11:00] VITALS: BP 167/87
[2018-05-07] MEDS ORDERED: metoprolol succinate 25mg (24-HOUR) SR. Tablet PO SCH (12:00)
[2018-05-07] MEDS ORDERED: LEVO500T2 PO (12:07)
[2018-05-07] MEDS ORDERED: METO-395 PO (12:07)
[2018-05-07] MEDS ORDERED: metoprolol succinate 25mg (24-HOUR) SR. Tablet PO ONE (12:13)
[2018-05-08] MEDS ORDERED: metoprolol succinate 25mg (24-HOUR) SR. Tablet PO SCH (08:00)
== END 2018-05-07 14:10 | disposition home or self-care (01) | DRG 207 ==
LOC: ER 09:29 → ED HOLD 11:23 → ICU 2S 13:35 → PCU 3S 05-05 16:23
PROVIDERS: ADMIT Internal Medicine Critical Care Medicine; ATTEND Internal Medicine Critical Care Medicine
PROC: 5A1955Z Respiratory Ventilation, Greater than 96 Consecutive Hours (ICD-10-PCS; principal; 2018-04-29)
PROC: 0BH17EZ Insertion of Endotracheal Airway into Trachea, Via Natural or Artificial Opening (ICD-10-PCS; 2018-04-29)
PROC: B3251ZZ Computerized Tomography (CT Scan) of Bilateral Common Carotid Arteries using Low Osmolar Contrast (ICD-10-PCS; 2018-04-29)
PROC: B32G1ZZ Computerized Tomography (CT Scan) of Bilateral Vertebral Arteries using Low Osmolar Contrast (ICD-10-PCS; 2018-04-29)
PROC: B3281ZZ Computerized Tomography (CT Scan) of Bilateral Internal Carotid Arteries using Low Osmolar Contrast (ICD-10-PCS; 2018-04-29)
PROC: 05H333Z Insertion of Infusion Device into Right Innominate Vein, Percutaneous Approach (ICD-10-PCS; 2018-04-29)
PROC: B54MZZA Ultrasonography of Right Upper Extremity Veins, Guidance (ICD-10-PCS; 2018-04-29)
PROC: B54NZZA Ultrasonography of Left Upper Extremity Veins, Guidance (ICD-10-PCS; 2018-04-29)
PROC: 4A10X4Z Monitoring of Central Nervous Electrical Activity, External Approach (ICD-10-PCS; 2018-04-29)
DX: J96.00 Acute respiratory failure, unspecified whether with hypoxia or hypercapnia (principal); G93.40 Encephalopathy, unspecified; J18.9 Pneumonia, unspecified organism; E87.1 Hypo-osmolality and hyponatremia; E72.20 Disorder of urea cycle metabolism, unspecified; N18.3 Chronic kidney disease, stage 3 (moderate); R56.9 Unspecified convulsions; F17.210 Nicotine dependence, cigarettes, uncomplicated; E78.00 Pure hypercholesterolemia, unspecified; F12.90 Cannabis use, unspecified, uncomplicated; I25.10 Atherosclerotic heart disease of native coronary artery without angina pectoris; I12.9 Hypertensive chronic kidney disease with stage 1 through stage 4 chronic kidney disease, or unspecified chronic kidney disease; Z95.1 Presence of aortocoronary bypass graft; Z79.82 Long term (current) use of aspirin; Z79.899 Other long term (current) drug therapy
CPT/HCPCS: 36415; 36556; 36600; 70450; 70496; 70498; 70544; 70551; 71045; 80053; 80305; 80320; 81001; 82140; 82570; 82803; 82948; 83605; 83735; 84100; 84134; 84145; 84300; 84478; 84484; 85018; 85025; 85610; 85730; 87040; 87070; 87077; 87185; 87207; 93005; 94002; 94003; 94640; 94667; 94668; 94760; 95816; 95951; 96374; 97110; 97116; 97162; 97530; 99291; 99292; A6213; A6257; A6258; A6402; A6449; C1751; C1758; J0360; J0696; J1644; J1953; J2060; J2250; J2405; J2704; J3480; J3490; J7030; Q9967

== ENCOUNTER 2018-08-09 09:30 | Emergency (ER) | payer MEDICARE, OTHER ==
[~2018-08-09] VITALS: Ht 193 cm; Wt 102.0 kg
[~2018-08-09 09:30] MED LIST changes: +LOSA100T15 PO; +METO-395 PO; -METO50TA7 PO; +SULF1TAB49 PO; -etomidate 2mg/ml inj. ONE; -rocuronium 10mg/ml inj IV ONE
[2018-08-09] MEDS ORDERED: FLO0.4C PO (09:49)
[2018-08-09 10:19] VITALS: BP 135/89
== END 2018-08-09 10:23 | disposition home or self-care (01) ==
LOC: ER 09:31
DX: Z46.6 Encounter for fitting and adjustment of urinary device (principal); I10 Essential (primary) hypertension; Z95.1 Presence of aortocoronary bypass graft; Z79.82 Long term (current) use of aspirin; Z79.899 Other long term (current) drug therapy
CPT/HCPCS: 99283